=== PATIENT | male | born 1940 | race Caucasian/White ===

== ENCOUNTER 2019-02-03 05:37 | Inpatient (IN) ==
--- NOTE | 2019-01-20 12:36 | Anesthesiology Consultation ---
Date of Service January 20, 2019 Assessment & Plan (1) Encounter for pre-operative examination: Chart Review Chart Review: Pending: Refer to Additional Notes / Consult section and Patient seen in Pre Admission Testing Awaiting preop labs. 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 He sees Dr. James Ritchie in [facility] for this. Please contact their office to obtain his most recent visit with this physician. Consults Requested none History Surgery Operation Date: 02/03/19 12:55 Proposed Procedures p C3-C5 Anterior Cervical Discectomy and Fusion, Spinal Cord Monitoring - Vijay Gomez DO Height/Weight Height: 6 ft 2 in Weight: 70.307 kg Allergies Allergy/AdvReac Type Severity Reaction Status Date / Time No Known Allergies Allergy Verified 01/20/19 11:58 Medications Home Medications Medication Instructions Recorded Confirmed Last Taken Eliquis 1 dose PO BID 01/20/19 01/20/19 Unknown Lipitor 1 dose PO QAM 01/20/19 01/20/19 Unknown aspirin 81 mg PO QAM 01/20/19 01/20/19 Unknown dutasteride 0.5 mg PO QAM 01/20/19 01/20/19 Unknown hydrocodone-acetaminophen [Vicodin 1 tab PO QID 01/20/19 01/20/19 Unknown HP] hydroxyurea 1,000 mg PO QAM 01/20/19 01/20/19 Unknown Past Medical History Medical History BPH (benign prostatic hyperplasia) Blood dyscrasia PT UNSURE OF REASON FOR HYDROXYUREA. STATES "I KNOW ITS FOR MY BLOOD." - PRESCRIBED BY DR. JAMES RITCHIE - [facility] Diverticular disease History of GI bleed History of anemia History of gastric ulcer Osteoarthritis Spinal stenosis Stroke 02/2018 - [facility]- NO RESIDUAL EFFECTS - ON ELIQUIS - FOLLOWS / [facility] Tinnitus Exercise / Class Metabolic Activity II 4-5 Yardwork/Stairs/Walk up hill Past Surgical History Surgical History History of appendectomy History of colonoscopy History of dilation of urethra History of esophagogastroduodenoscopy (EGD) History of hemorrhoidectomy History of surgery on upper extremity LUE - HARDWARE PRESENT History of tonsillectomy Past Anesthesia History No Hx of Anesthesia Complications and No Family Hx of Anesthesia Complications History of PONV No Hx of PONV and No Hx of Motion Sickness Social History Smoking Status: Never smoker Do You Dip or Chew Tobacco: No Smoking End Date: YEARS AGO Hx Alcohol Use: Yes alcohol intake frequency: other Hx Substance Use: No substance use type: does not use Physical Exam Vital Signs Last Vital Signs Temp 37.0 C 01/20/19 12:34 Pulse 91 H 01/20/19 12:34 Resp 16 01/20/19 12:34 BP 124/65 01/20/19 12:34 Pulse Ox 93 01/20/19 12:34 ENMT Mouth: no TMJ abnormality and no dentition abnormality Thyromental Distance: > or= 3.5 Finger Breadths Mallampati Class: I right eye bloodshot Neck normal visual inspection and + limited neck extension Respiratory normal respiratory effort Auscultation: lungs clear to auscultation bilaterally Cardiovascular Rate/Rhythm: regular rate and regular rhythm Heart Sounds: no murmur Musculoskeletal Spine: + limited cervical ROM Neurologic moves all extremities Psychiatric Orientation: alert and oriented x 3 Testing Electrocardiogram Date: 01/20/19 NSR. RBBB. HR 89
--- NOTE | 2019-01-20 13:23 | XRay Report ---
XR chest Pre-admission PA/Lat CLINICAL HISTORY: Preoperative evaluation. COMPARISON STUDY: No previous studies for comparison. FINDINGS: Lung volumes are mildly increased. Lungs are clear. There is no pneumothorax or pleural eff usion. Cardiac size is normal. Mediastinal contours are normal. There is no evidence for pulmonary ed rosalina. Monitoring device projects over the left hemithorax. IMPRESSION: No acute cardiopulmonary findings. Electronically signed by: Leighton Montoya M.D. 01/20/2019 1:21 PM
[2019-01-20 14:02] LABS: Partial Thromboplastin Ratio 0.9; Partial Thromboplastin Time 23.1 Seconds (21.0-31.0); Prothrombin Time 10.6 Seconds (9.0-12.0)
[2019-01-20 14:10] LABS: BUN Creatinine Ratio 13.2 (10-20); Calcium 8.9 mg/dl (8.5-10.1); Est GFR (Non-African American) 33.7; Potassium 3.9 mmol/L (3.5-5.1)
[2019-01-20 14:24] LABS: Appearance Urine Turbid (Clear); Blood Urine 3+ (Negative); Color Urine Red; Glucose Urine UA Negative (Negative); Ketones Urine Trace (Negative); Leukocyte Esterase Urine 3+ (Negative); Nitrite Urine Positive (Negative); Protein Urine 3+ (Negative); Urobilinogen Urine Negative (Negative); pH Urine 6.5 (4.5-7.5)
[2019-01-20 14:33] LABS: Bilirubin Urine Negative (Negative); Ictotest Urine Negative (Negative)
[2019-01-20 14:36] LABS: RBC Urine >30 /hpf (0-4); WBC Urine >30 /hpf (0-5)
[2019-01-20 14:37] LABS: Bacteria Urine 1+ (Negative)
[2019-01-20 15:32] LABS: Hematocrit (blood only) 25.4 % (42-52); Hemoglobin 7.6 g/dL (14.0-18.0); Mean Corpuscular Hemoglobin 29.9 pg (25-34); Mean Corpuscular Hgb Conc 29.9 g/dL (32-36); Platelet Count 456 K/uL (130-400); Red Blood Count 2.54 M/uL (4.7-6.1); White Blood Count 8.95 K/uL (4.8-10.8)
[2019-01-20 15:33] LABS: Anisocytosis Present; Basophils # (auto) 0.02 K/uL (0-0.2); Basophils % (auto) 0.2 %; Eosinophils # (auto) 0.01 K/uL (0-0.5); Eosinophils % (auto) 0.1 %; Hypochromasia Present; Immature Granulocytes # (auto) 0.03 K/uL (0.00-0.02); Immature Granulocytes % (auto) 0.3 %; Lymphocytes # (auto) 0.44 K/uL (1.2-3.4); Lymphocytes % (auto) 4.9 %; Monocytes # (auto) 0.43 K/uL (0.11-0.59); Monocytes % (auto) 4.8 %; Neutrophils # (auto) 8.02 K/uL (1.4-6.5); Neutrophils % (auto) 89.7 %; Poikilocytosis Present
[2019-02-03] MEDS ORDERED: ACETAMINOPHEN 500 MG TAB PO SCH (06:00)
[2019-02-03] MEDS ORDERED: LR 15ML/HR IV SCH (06:00)
[2019-02-03] MEDS ORDERED: GABAPENTIN 300 MG CAP PO SCH (06:00)
[2019-02-03] MEDS ORDERED: CEFAZOLIN 1000MG 1,000 MG/7.5 ML SYR IV SCH (06:00)
[2019-02-03] MEDS ORDERED: CeleBREX 200 MG CAP PO SCH (06:00)
[2019-02-03 06:15] LABS: Hematocrit (blood only) 29.4 % (42-52); Hemoglobin 8.9 g/dL (14.0-18.0); Mean Corpuscular Hemoglobin 29.1 pg (25-34); Mean Corpuscular Volume 96.1 fL (80-100); Mean Platelet Volume 9.5 fL (7.4-10.4); Platelet Count 379 K/uL (130-400); RDW Standard Deviation 66.6 fL (36.4-46.3); Red Blood Count 3.06 M/uL (4.7-6.1); White Blood Count 6.58 K/uL (4.8-10.8)
[2019-02-03 06:25] LABS: Mean Corpuscular Hgb Conc 30.3 g/dL (32-36)
[2019-02-03] MEDS ORDERED: fentaNYL citrate 100 MCG/2 ML VIAL ONE ×5 (06:49→09:20)
[2019-02-03] MEDS ORDERED: HYDROmorphone INJ 2 MG/ML SYR/VIAL ONE (06:49)
[2019-02-03] MEDS ORDERED: BACITRACIN INJ 50,000 UNIT VIAL ONE (06:52)
[2019-02-03] MEDS ORDERED: LIDOCAINE HCL 2% 2 ML VIAL/AMP(20MG/ML) INFIL ONE (06:54)
[2019-02-03] MEDS ORDERED: SUCCINYLCHOLINE CHLORIDE 20 MG/ML 10 ML VIAL ONE (06:54)
[2019-02-03] MEDS ORDERED: NEOSTIGMINE METHYLSULFATE 1 MG/ML 10ML VIAL ONE (06:54)
[2019-02-03] MEDS ORDERED: ROCURONIUM BROMIDE 10 MG/ML 5 ML VIAL ONE (06:54)
[2019-02-03] MEDS ORDERED: PROPOFOL IV EMULSION 10 MG/ML 20 ML VIAL IV ONE (06:54)
[2019-02-03] MEDS ORDERED: ONDANSETRON INJ 2 MG/ML 2 ML VIAL ONE (06:54)
[2019-02-03] MEDS ORDERED: DEXAMETHASONE SOD INJ 4 MG/ML VIAL ONE (06:54)
[2019-02-03] MEDS ORDERED: GLYCOPYRROLATE 0.2 MG/ML VIAL ONE (06:54)
[2019-02-03] MEDS ORDERED: PROPOFOL IV EMULSION 10 MG/ML 100 ML VIAL IV ONE (07:01)
--- NOTE | 2019-02-03 07:24 | History & Physical Bridge Note ---
Date of Service February 03, 2019 History & Physical Bridge Note I have examined the patient, reviewed the History & Physical and in the interval since the performance of the History & Physical I have noted the following changes of clinical significance: no changes noted
--- NOTE | 2019-02-03 07:25 | History & Physical Report ---
Date of Service February 03, 2019 Assessment & Plan (1) Cervical stenosis of spinal canal: Anterior cervical discectomy and fusion C3-C5 possible corpectomy C4 Present on Admission?: Yes History of Present Illness Chief Complaint: Neck and arm pain Primary Care Provider: NO PCP Is with chronic persistent neck and arm pain. After failing extensive course of nonoperative care is here for surgical intervention. Allergies Allergy/AdvReac Type Severity Reaction Status Date / Time No Known Allergies Allergy Verified 02/03/19 06:04 Home Medications Home Medications Medication Instructions Recorded Confirmed Type Eliquis 1 dose PO BID 01/20/19 02/03/19 History Lipitor 1 dose PO QAM 01/20/19 02/03/19 History aspirin 81 mg PO QAM 01/20/19 02/03/19 History dutasteride 0.5 mg PO QAM 01/20/19 02/03/19 History hydrocodone-acetaminophen [Vicodin 1 tab PO QID 01/20/19 02/03/19 History HP] hydroxyurea 1,000 mg PO QAM 01/20/19 02/03/19 History Past Med/Surg History Medical History BPH (benign prostatic hyperplasia) Blood dyscrasia PT UNSURE OF REASON FOR HYDROXYUREA. STATES "I KNOW ITS FOR MY BLOOD." - [facility] Diverticular disease History of GI bleed History of anemia History of gastric ulcer Osteoarthritis Spinal stenosis Stroke 02/2018 - HOSPITALIZED AT [facility]- NO RESIDUAL EFFECTS - ON ELIQUIS - FOLLOWS / [facility] Tinnitus Surgical History History of appendectomy History of colonoscopy History of dilation of urethra History of esophagogastroduodenoscopy (EGD) History of hemorrhoidectomy History of surgery on upper extremity LUE - HARDWARE PRESENT History of tonsillectomy Social History Preferred Language: Malian Communication Ability: Effective Edge Beader Required: No Beliefs That Will Affect Care: None Current Living Situation: Alone Other Information That Helps Us Care for You: No Feels Safe at Home: Yes Safety Concerns: Feels Safe At This Time Smoking Status: Never smoker Do You Dip or Chew Tobacco: No ; Smoking End Date: YEARS AGO ; Second Hand Exposure: Yes ( A CHILD) ; Tobacco Cessation Education Requested by Patient: No Hx Alcohol Use: Yes Hx Substance Use: No Physical Exam Physical Exam: Patient is alert and oriented neurologically intact. Results & Data Vital Signs (Past 12 Hours) Vital Signs Temp Pulse Resp BP Pulse Ox 02/03/19 06:07 36.6 C 62 20 151/62 H 98
[2019-02-03] MEDS ORDERED: CEFAZOLIN 250 MG/ML 1 GM VIAL ONE (08:00)
[2019-02-03] MEDS ORDERED: LABETALOL HCL IV 5 MG/ML 20ML IV PRN (08:27)
[2019-02-03] MEDS ORDERED: HYDROmorphone INJ 1 MG/ML SYRINGE IV PRN ×2 (08:27→11:05)
[2019-02-03] MEDS ORDERED: ATROPINE SULFATE 0.1 MG/ML 10ML SYR IV PRN (08:27)
[2019-02-03] MEDS ORDERED: MEPERIDINE HCL 25 MG/ML CARP IV PRN (08:27)
[2019-02-03] MEDS ORDERED: ePHEDrine sulfate 50 MG/ML AMP IV PRN (08:27)
[2019-02-03] MEDS ORDERED: fentaNYL citrate 100 MCG/2 ML VIAL IV PRN (08:27)
[2019-02-03] MEDS ORDERED: ONDANSETRON INJ 2 MG/ML 2 ML VIAL IV PRN ×2 (08:27→11:05)
[2019-02-03] MEDS ORDERED: PHENYLEPHRINE 100MCG/ML 5ML SYR IV PRN (08:27)
[2019-02-03] MEDS ORDERED: FLOSEAL HEMOSTATIC MATRIX 10ML TOP ONE (09:06)
--- NOTE | 2019-02-03 09:24 | Operative Report ---
Post Operative Report Pre & Post Diagnosis Operation Date: 02/03/19 07:45 Pre-Op Diagnosis: Cervical spinal stenosis with myelopathy Post-Op Diagnosis: Same I identified the patient and participated in the time-out.: Yes Procedure Operation Date: 02/03/19 07:45 Actual Procedures #1 anterior cervical corpectomy with bilateral foraminotomies C4. #2 anterior cervical arthrodesis C3-C5. #3 placement of peek cage 23 mm in height at C3-C5. #4 placement of locally harvested morselized autograft combined with DBM in the interbody cage. #5 application of booth plate and screws from C3-C5. Surgeon Vijay Gomez, DO Tool And Die Assembler Tim Casarez Estimated Blood Loss 15 Findings Consistent with Post-Op Diagnosis Specimens None Indications This is a 78-year-old male who presents with above-mentioned diagnosis after failing extensive course of nonoperative care is here for surgical intervention. Description of Procedure Patient was met with identified and informed consent obtained. Patient was then taken to the operative suite underwent intubation placed in supine position the Balwinder table the head [place] headlight adjuster. All bony prominences well-padded eyes inspected to ensure no external pressure placed upon but this point the anterior cervical spine was prepped and draped in the normal sterile fashion. With the assistance of fluoroscopy identified the C4 vertebral body and a transverse incision was placed along the right anterior aspect of the cervical spine overlying this region. Sharp dissection with the assistance of bipolar electric arteries performed on September exposing the anterior cervical spine from C3-C5. Self-retaining retractors placed. Then performed a complete discectomy of C3-4 out to the uncovertebral joints bilaterally followed by C4-5. Raymond distracting pins were then placed in C3 and C5 distract across the C4 vertebral body. I then performed a complete corpectomy of C4 including removal of all posterior annular fibers longitudinal ligament bilateral foraminotomies. Endplates were then burred to subcortical bleeding bone and a 23 mm peek cage filled with locally harvested morselized autograft and DBM tapped in position. All anterior ossified's were burred with smooth cortical surface and a booth plate and screws applied with the assistance of fluoroscopy. The incision was then copiously irrigated explored to ensure no damage to surrounding structures remaining bleeding. A 10 round [place] drain inserted. The incision was then closed with 2 Vicryl in the fashion of 4 Monocryl for final skin closure. Steri-Strip sterile dressings placed. Patient will continue to PACU stable condition. Please note Tim Casarez present throughout the entire procedure involved the patient positioning complex portions of the surgery and final skin closure. Lastly spinal cord monitoring was utilized that the procedure no changes noted. I attest to the content of the Intraoperative Record and any orders documented therein. Any exceptions are noted below.
[2019-02-03] MEDS ORDERED: LARYING-O-JET KIT (LTA) ONE (09:42)
[2019-02-03] MEDS ORDERED: ESMOLOL HCL INJ 10 MG/ML 10ML VIAL IV ONE (09:42)
--- NOTE | 2019-02-03 10:18 | Fluoroscopy Report ---
FL cervical 2-3V CLINICAL HISTORY: ACDF C3-C5 COMPARISON STUDY: None. FLUOROSCOPY TIME: 9 seconds.. FINDINGS: 2 fluoroscopic spot images of the cervical spine demonstrate anterior cervical discectomy a nd fusion from C3 through C5 with a C4 corpectomy and bone graft. The hardware appears intact. IMPRESSION: Fluoroscopy provided for C3-C5 ACDF. Electronically signed by: Darrel Shirley M.D. 02/03/2019 10:16 AM
--- NOTE | 2019-02-03 10:37 | Anesthesiology Progress Note ---
Date of Service February 03, 2019 Anesthesia Post Procedure Vital Signs Vital Signs: Temp Pulse Pulse Resp BP BP Pulse Ox 02/03/19 10:25 53 L 17 134/66 98 02/03/19 10:15 54 L 11 L 125/42 L 98 02/03/19 10:05 57 L 15 151/64 H 100 02/03/19 09:55 72 14 159/87 H 100 02/03/19 09:45 60 13 138/64 100 02/03/19 09:37 36.3 C L 72 14 151/70 H 97 02/03/19 06:07 36.6 C 62 20 151/62 H 98 Pain Intensity Posterior Neck: Pain Intensity: 2 Transfer of Care Handoff Completed per policy Notes Mental Status: alert / awake / arousable Patient Amnestic to Procedure: Yes Nausea / Vomiting: adequately controlled Pain: adequately controlled Airway Patency, RR, SpO2: stable & adequate BP & HR: stable & adequate Hydration State: stable & adequate Anesthetic Complications: no major complications apparent and Pt Satisfied with anesthetic care Notes: The patient's neck appeared clear.
[2019-02-03] MEDS ORDERED: ONDANSETRON 4 MG OD TAB PO PRN (11:05)
[2019-02-03] MEDS ORDERED: FAMOTIDINE 20 MG TAB PO PRN (11:05)
[2019-02-03] MEDS ORDERED: DO NOT ADMINISTER FLU VACCINE PRN (11:05)
[2019-02-03] MEDS ORDERED: TRAMADOL HCL 50 MG TABLET PO PRN (11:05)
[2019-02-03] MEDS ORDERED: DO NOT ADMINISTER PNEUMOCOCCAL VACCINE PRN (11:05)
[2019-02-03] MEDS ORDERED: ACETAMINOPHEN 1,000 MG/100 ML VIAL IV PRN (11:05)
[2019-02-03] MEDS ORDERED: ACETAMINOPHEN 500 MG TAB PO PRN (11:05)
[2019-02-03] MEDS ORDERED: MAGNESIUM HYDROXIDE SUSP 30 ML UDC PO PRN (11:05)
[2019-02-03] MEDS ORDERED: NALOXONE HCL 0.4 MG/1 ML VIAL/CARP IV PRN (11:05)
[2019-02-03] MEDS ORDERED: HYDROmorphone INJ 0.5 MG/0.5 ML SYR IV PRN (11:05)
[2019-02-03] MEDS ORDERED: LORazepam 0.5 MG/1 ML VIAL IV PRN (11:05)
[2019-02-03] MEDS ORDERED: PROMETHAZINE HCL 12.5 MG in SODIUM CHLORIDE 0.9% 50 ML IV PRN (11:05)
[2019-02-03] MEDS ORDERED: RACEPINEPHRINE 2.25% NEBU SOLN 0.5 ML VIAL INH PRN (11:05)
[2019-02-03] MEDS ORDERED: METOCLOPRAMIDE HCL INJ 5 MG/ML 2 ML VIAL IV PRN (11:05)
[2019-02-03] MEDS ORDERED: SOD PHOSPHATE/SOD BIPHOSPHATE ENEMA 132 ML BTL PR PRN (11:05)
[2019-02-03] MEDS ORDERED: DEXAMETHASONE SOD PHOSPHATE 8 MG in SYRINGE 0 ML IV PRN (11:05)
[2019-02-03] MEDS ORDERED: ALUMINUM/MAGNESIUM SUSP 30 ML UDC PO PRN (11:05)
[2019-02-03] MEDS ORDERED: LORazepam 0.5 MG TAB PO PRN (11:05)
[2019-02-03] MEDS: SODIUM CHLORIDE 0.9% 1000ML 1,000 ML IV SCH ×2 (13:06→22:09)
[2019-02-03] MEDS: HYDROCODONE/ACETAMOPHEN 5/325MG TAB PO PRN ×2 (14:21→21:00)
[2019-02-03] MEDS: CEFAZOLIN 2000MG 2,000 MG/15 ML SYR IV SCH ×2 (14:36→22:09)
[2019-02-03] MEDS: DOCUSATE SODIUM/SENNA 50/8.6MG TAB PO SCH (20:00)
[2019-02-03] MEDS: ATORVASTATIN 40 MG TAB PO SCH (20:01)
[2019-02-04] MEDS: HYDROCODONE/ACETAMOPHEN 5/325MG TAB PO PRN ×4 (01:05→22:23)
[2019-02-04] MEDS: POLYETHYLENE (MIRALAX) 17 GM PACK PO SCH ×3 (05:25→18:07)
[2019-02-04] MEDS: ASPIRIN 81 MG ECTAB PO SCH (08:47)
[2019-02-04] MEDS: HYDROXYUREA 500 MG CAP PO SCH (08:47)
--- NOTE | 2019-02-04 09:35 | Orthopedic Progress Note ---
Date of Service February 04, 2019 Assessment & Plan (1) Cervical stenosis of spinal canal: This time we will maintain the [place] drain another 24 hours secondary to its output. We will advance his diet today. Anticipate discharge home tomorrow. Present on Admission?: Yes Subjective Patient has some complaints of neck pain only. No upper extremity symptoms noted. He is swallowing well. No hoarseness. Physical Exam Physical Exam: On exam is excellent strength testing. His dressings in place. There is no appreciable swelling. Results & Data Vital Signs (Past 12 Hours) Vital Signs Temp Pulse Resp BP BP Pulse Ox 02/04/19 07:55 36.7 C 62 16 108/47 L 98 02/04/19 07:50 59 L 16 98 02/04/19 05:55 36.4 C L 62 18 133/58 L 98 02/04/19 03:55 36.8 C 56 L 16 113/51 L 96 02/04/19 03:24 58 L 18 99 02/04/19 01:55 36.7 C 58 L 16 108/50 L 97 02/03/19 23:55 36.7 C 66 16 125/55 L 95 02/03/19 23:32 66 17 96 02/03/19 22:04 36.6 C 67 18 109/54 L 95
[2019-02-04] MEDS ORDERED: DEXAMETHASONE SOD PHOSPHATE 8 MG in SYRINGE 0 ML IV STA (09:37)
[2019-02-04] MEDS: DOCUSATE SODIUM/SENNA 50/8.6MG TAB PO SCH (22:16)
[2019-02-04] MEDS: ATORVASTATIN 40 MG TAB PO SCH (22:17)
[2019-02-05] MEDS: POLYETHYLENE (MIRALAX) 17 GM PACK PO SCH ×2 (00:01→05:34)
[2019-02-05] MEDS: ASPIRIN 81 MG ECTAB PO SCH (08:29)
[2019-02-05] MEDS: HYDROXYUREA 500 MG CAP PO SCH (08:29)
--- NOTE | 2019-02-05 08:55 | Discharge Summary ---
Date of Service February 05, 2019 Admission HPI Per Admitting Provider Is with chronic persistent neck and arm pain. After failing extensive course of nonoperative care is here for surgical intervention. Discharge Data Procedures Performed Operation Date: 02/03/19 07:45 Actual Procedures p C3-C5 Anterior Cervical Discectomy and Fusion, C3 corpectomy with Spinal Cord Monitoring(Bilateral) - Vijay Gomez DO Hospital Course (1) Cervical stenosis of spinal canal: Patient is a 78-year-old male with history, physical examination, and radiographic images consistent with the above-mentioned diagnosis. For this reason is brought to the operating room on February 03, 2019 underwent the above-mentioned procedure. This performed by Dr. Gomez under general anesthesia. Left the operating room with a [place] drain Long in place and was transferred to PACU in stable condition. He was placed in a hard collar and given GI and DVT prophylaxis. He tolerated the procedure well. And as of February 05, 2019 he was deemed safe for home discharge. He was to change dressing once daily until the dressing was dry. Once the dressing was dry no longer need to keep his incision covered may start to shower. He may remove his collar for meals and for showers. He is given prescription for hydrocodone for pain control. We are going to see him back in the office in approximately 2 weeks or sooner if he develops any increased pain, fevers, increased drainage, or worsening radicular complaints.
[2019-02-05] MEDS ORDERED: BISACODYL 10 MG SUPP PR PRN (09:25)
== END 2019-02-05 09:46 | disposition home or self-care (01) | DRG 472 ==
LOC: ASU 05:37 → 3E 09:27